=== PATIENT | female | born 1990 | race Hispanic/Latino ===

== ENCOUNTER 2022-11-29 00:08 | Emergency (ER) | payer MEDICAID ==
[2022-11-29 01:02] LABS: Bilirubin Neg (Negative); Blood, Urine 250 (Negative); Clarity Cloudy (Clear); Glucose, Urine (Dipstick) Normal (Negative); Ketone, Urine Negative (Negative); Leukocyte 500 (Negative); Nitrite Negative (Negative); Protein, Urine (Dipstick) 30 mg/dl (Neg-Trace); Specific Gravity, Urine 1.005 (1.005-1.030); Urobilinogen Normal mg/dL (Less than 2); pH, Urine 6.5 (5.0-9.0)
[2022-11-29 01:07] LABS: Bacteria/HPF Rare-Few HPF (None Seen); RBC/HPF 21-50 HPF (0-3); Squamous Epithelial 0-3 HPF (0-3)
[2022-11-29] MEDS ORDERED: Cephalexin 250 MG CAP ONE (02:50)
[2022-11-29 19:43] LABS: Chlam.trachomatis by PCR,Urine Not Detected (NotDetected); GC N.gonorrhoeae PCR,UrineVOID Not Detected (NotDetected)
== END 2022-11-29 02:56 | disposition home or self-care (01) ==
LOC: CSHERS 00:08
DX: O20.0 Threatened abortion (principal); O20.8 Other hemorrhage in early pregnancy; O23.591 Infection of other part of genital tract in pregnancy, first trimester; B96.89 Other specified bacterial agents as the cause of diseases classified elsewhere; O23.41 Unspecified infection of urinary tract in pregnancy, first trimester; N39.0 Urinary tract infection, site not specified; Z3A.01 Less than 8 weeks gestation of pregnancy
CPT/HCPCS: 36415; 76856; 81003; 81015; 84702; 86900; 86901; 87077; 87086; 87186; 87480; 87491; 87510; 87591; 87660

== ENCOUNTER 2023-03-30 09:46 | Outpatient (CLI) | payer OTHER | END 2023-03-30 09:47 | disposition home or self-care (01) | LOC: CSHULT 09:46 | PROVIDERS: ATTEND Nurse Practitioner Women's Health | DX: O09.892 Supervision of other high risk pregnancies, second trimester (principal); Z3A.24 24 weeks gestation of pregnancy | CPT/HCPCS: 76805 ==

== ENCOUNTER 2023-07-12 07:43 | Inpatient (IN) | payer MEDICAID, OTHER ==
[2023-07-12 08:56] VITALS: BMI 32.8
[2023-07-12] MEDS ORDERED: fentaNYL 50 mcg/mL 1 mL Vial SLOW IVP PRN ×2 (09:08→12:52)
[2023-07-12] MEDS ORDERED: Lactated Ringer's 1,000 ML IV SCH ×2 (09:15→10:30)
[2023-07-12] MEDS ORDERED: Promethazine HCl 25 MG/ML VIAL IM PRN ×2 (10:22→12:52)
[2023-07-12] MEDS ORDERED: Bicitra 30 ML UDCUP PO PRN (10:22)
[2023-07-12] MEDS ORDERED: Ondansetron PF 4 MG/2 ML Vial IVP PRN ×4 (10:22→15:05)
[2023-07-12] MEDS ORDERED: Famotidine/PF 20 mg/2ml Vial SLOW IVP PRN (10:22)
[2023-07-12] MEDS ORDERED: hydrALAZINE 20 MG/ML VIAL SLOW IVP PRN ×2 (10:22→15:05)
[2023-07-12] MEDS ORDERED: CEFAZOLIN 2 GM in Sodium Chloride 0.9% 100 ML IVPB SCH (10:30)
[2023-07-12] MEDS ORDERED: Oxytocin 30 units/NS 500 ML 500 ML IV SCH (10:30)
[2023-07-12 10:42] LABS: Hematocrit 34.9 % (34.9-44.5); Hemoglobin 11.5 g/dL (12.0-15.5); Mean Corpuscular Hemoglobin 27.4 pg (27.0-33.0); Mean Corpuscular Volume 83.1 fl (81.6-98.3); Mean Platelet Volume 11.8 fl (7.4-10.4); Platelet Count 152 10x3/uL (150-450); RBC Distribution Width 18.1 % (11.5-14.5)
[2023-07-12 11:12] LABS: HBSAg Index 0.22 S/CO (0-0.99); Hep B Surf Ag - L&D Non-Reactive S/CO (NonReactive)
[2023-07-12] MEDS ORDERED: Oxytocin 10 UNITS/ML VIAL ONE ×2 (11:12→11:49)
[2023-07-12] MEDS ORDERED: Morphine PF 10 MG/10 ML VIAL ONE (11:12)
[2023-07-12 11:13] LABS: Syphilis Antibody Nonreactive (Nonreactive); Syphilis Antibody Index 0.08 S/CO (<1.00 Non-Reactive)
[2023-07-12] MEDS ORDERED: Dexamethasone 4 mg/ml Vial ONE (11:29)
[2023-07-12] MEDS ORDERED: Ondansetron PF 4 MG/2 ML Vial ONE (11:29)
[2023-07-12] MEDS ORDERED: KETAMINE 100 MG/ML (5ML VIAL) ONE (11:32)
[2023-07-12] MEDS ORDERED: Tranexamic Acid 1,000 MG/10 ML VIAL ONE ×2 (11:36)
[2023-07-12] MEDS ORDERED: Ketorolac Tromethamine 30 MG/ML VIAL ONE (11:47)
[2023-07-12] MEDS ORDERED: Promethazine HCl 25 MG SUPP PR PRN (12:52)
[2023-07-12] MEDS ORDERED: Naloxone HCl 0.4 mg/ml Vial IV PRN (12:52)
[2023-07-12] MEDS ORDERED: Naloxone HCl 0.4 mg/ml Vial IVP PRN ×2 (12:52)
[2023-07-12] MEDS ORDERED: Moisturizing Cream (Eucerin) 113 GM JAR TOP PRN (12:52)
[2023-07-12] MEDS ORDERED: Meperidine HCl/PF 25 MG/ML VIAL SLOW IVP PRN (12:52)
[2023-07-12] MEDS ORDERED: Ketorolac Tromethamine 30 MG/ML VIAL IVP SCH (13:00)
[2023-07-12] MEDS ORDERED: Communication Order-Pharmacy FS SCH (13:00)
[2023-07-12] MEDS: diphenhydrAMINE 50 MG/ML VIAL IVP PRN ×2 (14:44→20:14)
[2023-07-12] MEDS ORDERED: Boostrix 0.5 ML (Tdap) VIAL (>/=7 yrs of age) IM ONE (15:05)
[2023-07-12] MEDS ORDERED: Bisacodyl 10 MG SUPP PR PRN (15:05)
[2023-07-12] MEDS ORDERED: diphenhydrAMINE 25 MG CAP PO PRN (15:05)
[2023-07-12] MEDS ORDERED: Simethicone Chewable 80 MG TAB PO PRN (15:05)
[2023-07-12] MEDS ORDERED: Lanolin Ointment 7 GM TUBE TOP PRN (15:05)
[2023-07-12] MEDS ORDERED: Methylergonovine 0.2 MG/ML VIAL ONE (15:07)
[2023-07-12] MEDS: Ferrous Sulfate 325 MG TAB PO SCH (19:28)
[2023-07-12] MEDS: Ketorolac Tromethamine 30 MG/ML VIAL IVP PRN (20:15)
[2023-07-12] MEDS: Docusate 100 MG CAP PO SCH (20:15)
[2023-07-12] MEDS: Sertraline 100 MG TAB PO SCH (20:15)
[2023-07-13] MEDS ORDERED: HYDROcodone/Acetaminophen 5/325 mg Tablet PO PRN (01:00)
[2023-07-13] MEDS: Ketorolac Tromethamine 30 MG/ML VIAL IVP PRN (03:37)
[2023-07-13 04:00] LABS: Hematocrit 25.5 % (34.9-44.5)
[2023-07-13 04:02] LABS: Hemoglobin 8.3 g/dL (12.0-15.5); Mean Corpuscular HGB CONC 32.5 g/dL (32.0-36.0); Mean Corpuscular Hemoglobin 27.1 pg (27.0-33.0); Mean Corpuscular Volume 83.3 fl (81.6-98.3); Mean Platelet Volume 11.6 fl (7.4-10.4); Platelet Count 151 10x3/uL (150-450); RBC Distribution Width 17.7 % (11.5-14.5); Red Blood Cell (RBC) Count 3.06 10x6/uL (3.90-5.03); White Blood Cell (WBC) Count 11.4 10x3/uL (3.5-10.5)
[2023-07-13] MEDS: Docusate 100 MG CAP PO SCH ×2 (07:48→21:47)
[2023-07-13] MEDS: Prenatal Vitamin 1 TAB PO SCH (07:48)
[2023-07-13] MEDS: Ferrous Sulfate 325 MG TAB PO SCH ×2 (07:48→21:47)
[2023-07-13] MEDS: HYDROcodone/Acetaminophen 5/325 mg Tablet PO PRN ×3 (07:48→21:48)
[2023-07-13] MEDS: Ibuprofen 800 MG TAB PO SCH (21:47)
[2023-07-13] MEDS: Sertraline 100 MG TAB PO SCH (21:47)
[2023-07-14] MEDS: HYDROcodone/Acetaminophen 5/325 mg Tablet PO PRN (03:58)
[2023-07-14] MEDS: Ibuprofen 800 MG TAB PO SCH (06:12)
[2023-07-14 07:35] VITALS: BP 118/65; TEMP 98.1
[2023-07-14] MEDS: Prenatal Vitamin 1 TAB PO SCH (08:56)
[2023-07-14] MEDS: Ferrous Sulfate 325 MG TAB PO SCH (08:56)
[2023-07-14] MEDS: Docusate 100 MG CAP PO SCH (08:56)
== END 2023-07-14 15:20 | disposition home or self-care (01) | DRG 788 ==
LOC: CSHLD/OP 07:43 → CSHLD 10:23 → CSHPP 15:36
PROVIDERS: ADMIT Obstetrics & Gynecology; ATTEND Obstetrics & Gynecology
PROC: 10D00Z1 Extraction of Products of Conception, Low, Open Approach (ICD-10-PCS; principal; 2023-07-12)
DX: O34.211 Maternal care for low transverse scar from previous cesarean delivery (principal); O99.02 Anemia complicating childbirth; Z3A.39 39 weeks gestation of pregnancy; D64.9 Anemia, unspecified; Z37.0 Single live birth; O99.893 Other specified diseases and conditions complicating puerperium; N73.6 Female pelvic peritoneal adhesions (postinfective)
CPT/HCPCS: 36415; 85027; 86780; 86850; 86900; 86901; 87340; J1100; J1200; J1885; J2210; J2274; J2405; J2590; J3010